=== PATIENT | male | born 1995 | race Caucasian/White ===

== ENCOUNTER 2016-07-31 11:31 | Emergency (ER) | payer OTHER ==
[2016-07-31 12:14] LABS: BASOPHIL# 0.1 X 10^3uL (0.0-0.1); BASOPHILS 0.8 % (0.0-2.0); EOSINOPHILS 0.1 % (0.0-6.0); HEMATOCRIT 46.2 % (42.0-54.0); HEMOGLOBIN 16.1 g/dL (14.0-18.0); LYMPHOCYTES 16.7 % (20.0-40.0); LYMPHOCYTES# 1.1 X 10^3uL (0.8-3.8); MEAN CELL VOLUME 93.4 fL (80.0-100.0); MEAN CORPUS. HGB CONCENTRATION 34.7 g/dL (32.0-36.0); MEAN CORPUSCULAR HEMOGLOBIN 32.5 pg (29.0-35.0); MEAN PLATELET VOLUME 8.1 fL (7.4-10.4); MONOCYTES 7.2 % (2.0-10.0); MONOCYTES# 0.5 X 10^3uL (0.2-1.0); NEUTROPHILS 75.2 % (54.0-75.0); NEUTROPHILS# 5.2 X 10^3uL (2.6-6.7); PLATELET COUNT 244 X 10^3uL (130-440); RED BLOOD COUNT 4.95 X 10^6uL (4.20-6.10); RED CELL DISTRIBUTION WIDTH 13.3 % (11.5-14.5); WHITE BLOOD COUNT 6.9 X 10^3uL (3.9-10.7)
[2016-07-31 12:24] LABS: BLOOD UREA NITROGEN 18 mg/dL (9-20); CHLORIDE 105 mmol/L (98-107); CREATININE 0.9 mg/dL (0.7-1.3); EST GLOMERULAR FILTRATION RATE > 60 mL/min; GLUCOSE 105 mg/dL (70-100); POTASSIUM 4.7 mmol/L (3.5-5.1); SODIUM 138 mmol/L (137-145)
[2016-07-31 12:26] LABS: ETHYL ALCOHOL < 10 mg/dL (<10)
[2016-07-31 12:27] LABS: INR 1.1; PARTIAL THROMBOPLASTIN TIME 28 sec (24-38)
--- NOTE | 2016-07-31 13:55 | ER PHYSICIAN DOCUMENTATION ---
Physician Documentation [facility] Name:Figueroa Kilpatrick Age:21 yrs Sex:Male :1995 Arrival Date:07/31/2016 Time:11:31 BedTrauma B Private MD: Narayan Talavera Disposition: 07/31 13:16 Critical Care: not applicable. sc Disposition: 07/31/16 13:18 Discharged to Home/Self Care. Impression: Altered Mental Status. - Condition is Good. - Discharge Instructions: CONFUSION. - Medical Reconciliation form form. - Follow up: Sunny Maxwell MD; When: Upon discharge from the Emergency Department; Reason: Continuance of care. Follow up: Private Physician; When: Upon discharge from the Emergency Department; Reason: Continuance of care. - Problem is new. - Symptoms have improved. HPI: 13:09 This 21 yrs old Male presents to ER via Private Vehicle with complaints of sc Altered Mental Status. 13:09 The patient presents with confusion. Onset: The symptom(s)/episode began/occurred just sc prior to arrival. Possible causes: CVA or TIA, drug use, alcohol, head injury, low blood sugar, a psychiatric problem, seizure. Associated signs and symptoms: Pertinent positives: tingling. Current symptoms: In the emergency department the patient's symptoms have improved, mildly. Patient's baseline: Neuro: alert and fully oriented, Motor: no deficits, Speech: normal, The patient has a previous history of head injury. The patient has experienced similar episodes in the past, a few times, today's symptoms are similar, first time seeking help but a couple other episodes in past month. Historical: - Allergies: No known drug Allergies; - Home Meds: 1. None - PMHx: febrile seizures as a child; concussions x 3 (none in 6 years); - PSHx: None; - Tetanus: unknown. - Ebola Screening: : Patient negative for fever greater than or equal to 101.5 degrees Fahrenheit, and additional compatible Ebola Virus Disease symptoms. Patient denies exposure to infectious person. Patient denies travel to an Ebola-affected area in the 21 days before illness onset. No symptoms or risks identified at this time. . - Immunization history: Unable to Obtain. - Social history: Smoking status: Patient uses tobacco products, light tobacco smoker. Patient uses alcohol on a daily basis. ROS: 13:13 Constitutional: Negative for fever, chills, and weight loss. sc Eyes: Negative for injury, pain, redness, and discharge. ENT: Negative for injury, pain, and discharge. Neck: Negative for injury, pain, and swelling. Cardiovascular: Negative for chest pain, palpitations, and edema. Respiratory: Negative for shortness of breath, cough, wheezing, and pleuritic chest pain. Abdomen/GI: Negative for abdominal pain, nausea, vomiting, diarrhea, and constipation. Back: Negative for injury and pain. MS/Extremity: Negative for injury and deformity. 13:13 Skin: Negative for injury, rash, and discoloration. sc 13:13 Neuro: Positive for altered mental status, tingling. Exam: Constitutional: This is a well developed, well nourished patient who is awake, alert, and in no acute distress. Head/Face: Normocephalic, atraumatic. Eyes: Pupils equal round and reactive to light, extra-ocular motions intact. Lids and lashes normal. Conjunctiva and sclera are non-icteric and not injected. Cornea within normal limits. Periorbital areas with no swelling, redness, or edema. ENT: Nares patent. No nasal discharge, no septal abnormalities noted. Tympanic membranes are normal and external auditory canals are clear. Oropharynx with no redness, swelling, or masses, exudates, or evidence of obstruction, uvula midline. Mucous membranes moist. Neck: Trachea midline, no thyromegaly or masses palpated, and no cervical lymphadenopathy. Supple, full range of motion without nuchal rigidity, or vertebral point tenderness. No meningismus. Chest/axilla: Normal chest wall appearance and motion. Nontender with no deformity. No lesions are appreciated. Cardiovascular: Regular rate and rhythm with a normal S1 and S2. No gallops, murmurs, or rubs. Normal PMI, no JVD. No pulse deficits. Respiratory: Lungs have equal breath sounds bilaterally, clear to auscultation and percussion. No rales, rhonchi or wheezes noted. No increased work of breathing, no retractions or nasal flaring. Abdomen/GI: Soft, non-tender, with normal bowel sounds. No distension or tympany. No guarding or rebound. No evidence of tenderness throughout. Back: No spinal tenderness. No costovertebral tenderness. Full range of motion. 13:14 Skin: Warm, dry with normal turgor. Normal color with no rashes, no lesions, and no sc evidence of cellulitis. 13:14 Constitutional: The patient appears alert, awake. 13:14 Neuro: Orientation: is normal, to person, place, time & situation. Mentation: is normal, slow to respond, Memory: is normal, Cranial nerves: CN II- XII are normal as tested, Cerebellar function: is grossly normal, Gait: is steady. Vital Signs: 11:37 BP 155 / 89; Pulse 96; Resp 16; Temp 98.3; Pulse Ox 92% on R/A; Pain 0/10; rs 11:58 BP 131 / 74; Pulse 83; Resp 16; Pulse Ox 94% on R/A; Pain 0/10; rs 12:10 BP 136 / 67; Pulse 74; Resp 13; Pulse Ox 94% on R/A; Pain 3/10; rs MDM: 11:34 Patient medically screened. ny 13:14 Differential Diagnosis: CVA, electrolyte abnormality, alcohol intoxication, ny hypoglycemia, intracranial bleed, seizure, TIA. Data reviewed: vital signs, nurses notes, lab test result(s), EKG, radiologic studies, CT scan, and as a result, I will discharge patient. Counseling: I had a detailed discussion with the patient and/or guardian regarding: the historical points, exam findings, and any diagnostic results supporting the discharge/admit diagnosis, lab results, radiology results, the need for outpatient follow up, for a referral to a specialist. ECG:. 07/31 12:16 Order name: CBC AUTO DIF, MDIF/RMOR IF IND; Complete Time: 12:50 EDMS 07/31 12:50 Interpretation: Normal: Normal. ny 07/31 12:27 Order name: BASIC METABOLIC PANEL; Complete Time: 12:50 EDMS 07/31 12:50 Interpretation: Normal: Normal. ny 07/31 12:27 Order name: ETHYL ALCOHOL; Complete Time: 12:50 EDMS 07/31 12:50 Interpretation: Normal: Normal. ny 07/31 12:37 Order name: PROTIME/INR; Complete Time: 12:50 EDMS 07/31 12:50 Interpretation: Normal. ny 07/31 12:37 Order name: PARTIAL THROMBOPLASTIN TIME; Complete Time: 12:50 [facility] 07/31 12:50 Interpretation: Normal. ny 07/31 13:09 Order name: URINE DRUG SCREEN, QUAL; Complete Time: 13:19 EDSD 07/31 13:19 Interpretation: Normal. ny 07/31 11:35 Order name: 12-lead EKG; Complete Time: 12:58 ny 07/31 11:35 Order name: Continuous Cardiac Monitoring; Complete Time: 12:11 ny 07/31 11:35 Order name: I & O; Complete Time: 12:11 ny 07/31 11:35 Order name: NIH Stroke Scale; Complete Time: 12:58 ny 07/31 11:35 Order name: NPO; Complete Time: 12:11 ny 07/31 11:35 Order name: Oxygen; Complete Time: 12:11 ny 07/31 11:35 Order name: Pulse Ox Continuous; Complete Time: 12:11 ny EC:14 Rate is 80 beats/min. Rhythm is regular. QRS [place] is Normal. WI interval is normal. QRS sc interval is normal. QT interval is normal. No Q waves. T waves are Normal. No ST changes noted. Clinical impression: Normal ECG. Interpreted by me. Reviewed by me. Dispensed Medications: No medications were administered Point of Care Testing: Blood Glucose: 11:40 Blood Glucose: 98 mg/dL; rs Ranges: Critical Glucose Levels:Adult <50 mg/dl or >400 mg/dl <40 mg/dl or >180 mg/dl Signatures: Xiao Jiménez RN RN st Stalker, Rachael, RN RN rs Chew, Scott, MD MD ny
--- NOTE | 2016-07-31 13:55 | ER NURSING DOCUMENTATION ---
Nurse's Notes [facility] Name:Figueroa Kilpatrick Age:21 yrs Sex:Male :1995 Arrival Date:07/31/2016 Time:11:31 BedTrauma B Private MD: Diagnosis:Altered Mental Status Presentation: 07/31 11:40 Presenting complaint: Patient states: Periods of confusion, shaking and tingling in rs both hands. One episode 3 weeks ago lasting unknown amount of time, yesterday x 20 minutes, and then started while he was at work this morning. Hx of 3 concussions (none in 6 yrs), febrile sz as a child. Eating and drinking well. Does drink EtOH almost every day, about 8 oz of whiskey. Does not feel dizzy when he stands up, no room spinning, No nausea, no diarrhea. No CO exposure. Feels better now that he did when he came in to the clinic downstairs. Transition of care: patient was not received from another setting of care. 11:40 Acuity: NORI 3 rs 11:40 Method Of Arrival: Private Vehicle rs Triage Assessment: 12:17 General: Appears in no apparent distress, comfortable, well developed, well nourished, rs Behavior is cooperative, pleasant, quiet, Smells of athletes foot. Pain: Complains of pain in BRAGG started jyeer, rates 3 to 5/10, intermittent. Pain currently is 3 out of 10 on a pain scale. Quality of pain is described as aching. EENT: No deficits noted. Tympanic membrane clear on right ear and left ear Ear canal clear on right ear and left ear Denies nasal congestion, nasal discharge. Neuro: Level of Consciousness is awake, alert, obeys commands, Oriented to person, place, time, event, Enlisted Advisor are equal bilaterally Moves all extremities. Gait is steady, Speech is normal, Facial symmetry appears normal, Pupils are PERRLA, Reports dizziness, headache paresthesias Denies weakness difficulty swallowing, photophobia diplopia. Cardiovascular: Capillary refill < 3 seconds Heart tones S1 S2 Pulses are 3+ in right radial artery Denies palpitations, Rhythm is sinus rhythm Chest pain is denied. Respiratory: No deficits noted. Airway is patent Respiratory effort is even, unlabored, Respiratory pattern is regular, symmetrical, Breath sounds are clear bilaterally. Denies cough, shortness of breath. GI: No deficits noted. Abdomen is flat, non- distended Bowel sounds present X 4 quads. Abd is soft and non tender X 4 quads. Denies constipation, diarrhea, nausea, vomiting. Derm: No deficits noted. Skin is intact, Skin is pink, warm & dry. Musculoskeletal: No deficits noted. Circulation, motion, and sensation intact Capillary refill < 3 seconds. Historical: - Allergies: No known drug Allergies; - Home Meds: 1. None - PMHx: febrile seizures as a child; concussions x 3 (none in 6 years); - PSHx: None; - Tetanus: unknown. - Ebola Screening: : Patient negative for fever greater than or equal to 101.5 degrees Fahrenheit, and additional compatible Ebola Virus Disease symptoms. Patient denies exposure to infectious person. Patient denies travel to an Ebola-affected area in the 21 days before illness onset. No symptoms or risks identified at this time. . - Immunization history: Unable to Obtain. - Social history: Smoking status: Patient uses tobacco products, light tobacco smoker. Patient uses alcohol on a daily basis. Screenin:40 Nutritional screening: No deficits noted. rs 13:07 Infectious Disease Risk None. Abuse screen: Denies threats or abuse. rs Assessment: 13:12 Reassessment: Patient states feeling better. Patient states symptoms have improved. rs Patient appears in no apparent distress at this time. Vital Signs: 11:37 BP 155 / 89; Pulse 96; Resp 16; Temp 98.3; Pulse Ox 92% on R/A; Pain 0/10; rs 11:58 BP 131 / 74; Pulse 83; Resp 16; Pulse Ox 94% on R/A; Pain 0/10; rs 12:10 BP 136 / 67; Pulse 74; Resp 13; Pulse Ox 94% on R/A; Pain 3/10; rs ED Course: 11:32 Patient arrived in ED. ds 11:34 Narayan Hugo MD is Attending Physician. sc 11:40 surveillance monitor on. Pulse ox on. Door closed. Noise minimized. Lights dimmed. Verbal rs reassurance given. Diet: Patient is NPO. 11:45 Inserted saline lock: 20 gauge in right antecubital area and blood collected. Oxygen rs Oxygen administration via nasal cannula @ 2L/min. 11:45 Placed in gown. Bed in low position. Call light in reach. Side rails up X2. rs 12:00 CT done EKG done per protocol. Performed by ED Staff. Shown to ED physician. rs 12:01 Leah Nolan, RN is Primary Nurse. rs 12:08 Triage completed. rs 12:[address] pm1 12:[address]. pm1 13:10 Up at [facility] for urine specimen for uds, sent to lab. States he is feeling fine now rs and would like to get dressed. Has talked to his mother by phone. She is in [place] and will wait for CT results. Awaiting lab results. 13:16 Sunny Maxwell MD is Referral Physician. nj Administered Medications: No medications were administered Point of Care Testing: Blood Glucose: 11:40 Blood Glucose: 98 mg/dL; rs Ranges: Outcome: 13:18 Discharge ordered by . nj 13:53 Discharged to home ambulatory. st 13:53 Condition: improved 13:53 Discharge instructions given to patient, Instructed on discharge instructions, follow up and referral plans. 13:53 IV D/Jj 13:54 Patient [address] the ED. st 03 11:27 Discharge F/U Call: Unable to reach: non-working number st Signatures: Xiao Jiménez RN RN st Leah Nolan, RENEE RN rs Olive, Imelda, Jim Reg Narayan Corley MD MD nj Carmela Pederson pm1
--- NOTE | 2016-08-02 08:15 | CT REPORT ---
HISTORY: Atypical headache and visual changes. COMPARISON: None. TECHNIQUE: Axial non-contrast images obtained from skull vertex through foramen magnum. Dose reduction technique was utilized. FINDINGS: There is no atrophy. There is no hemorrhage. There is no hydrocephalus. No mass lesion is identified. Lucas white differentiation adequate, there is no infarction. No midline shift is identified. The paranasal sinuses are clear. IMPRESSION: Normal head CT. Final Electronic Signature: This report was electronically signed by Josh Whitlock MD on 07/31/2016 12:34 PM. cristal / ARIELLA
== END 2016-07-31 13:55 | disposition home or self-care (01) ==
LOC: ER 11:31
DX: R41.82 Altered mental status, unspecified (principal); R20.2 Paresthesia of skin; Z72.0 Tobacco use
CPT/HCPCS: 70450; 80048; 80305; 80320; 85025; 85610; 85730; 93005; 99285